=== PATIENT | female | born 1970 | race Caucasian/White ===

== ENCOUNTER 2022-12-28 22:04 | Emergency (ER) | payer OTHER, MEDICAID ==
[2022-12-28] MEDS ORDERED: HYDROmorphone 1 MG/ML Syringe IVPUSH ONE (22:16)
[2022-12-28] MEDS ORDERED: Lidocaine 1% 30 ML SDV INJECT ONE (22:49)
[2022-12-28] MEDS ORDERED: Diphtheria,Pertussis(Acell),Tetanus Vaccine 0.5 ML Syringe IM ONE (23:20)
[2022-12-29] MEDS ORDERED: HYDROmorphone 1 MG/ML Syringe IVPUSH ONE (00:06)
== END 2022-12-29 00:25 | disposition short-term general hospital (02) ==
LOC: MERGE 22:04 → VM.ED 22:04
DX: S12.600A Unspecified displaced fracture of seventh cervical vertebra, initial encounter for closed fracture (principal); Z88.5 Allergy status to narcotic agent; V49.50XA Passenger injured in collision with unspecified motor vehicles in traffic accident, initial encounter; Y92.410 Unspecified street and highway as the place of occurrence of the external cause
CPT/HCPCS: 29125; 70450; 71045; 72125; 73090-RT; 73130-RT; 90471; 90715; 96374; 96376; 99284; 99285-25; J1170